=== PATIENT | female | born 1975 | race Two or more races ===

== ENCOUNTER → 2019-11-14 | Day surgery (SDC) | payer OTHER ==
[~2019-11-14] MED LIST: LIDOCAINE 2% INJ (20 MG/ML) 20 ML MDV ONE
--- NOTE | 2019-11-18 09:59 | WOMENS IMAGING REPORT ---
EXAM DESCRIPTION: U/S BREAST BX; RIGHT DIAGNOSTIC MAMMO W/CAD IMAGES COMPLETED DATE/TIME: 11/17/2019 4:12 pm; 11/14/2019 9:56 am REASON FOR STUDY: R92.8 OTH ABN AND INCONCLUSIVE FINDINGS ON DX IMAGING OF BREAST; S/P US RIGHT FRANK ST BX R92.8 R92.8 OTH ABN AND INCONCLUSIVE FINDINGS ON DX IMAGING OF DANILO COMPARISON: 10/30/2019. TECHNIQUE: The procedure was discussed with the patient and the patient agreed to proceed. The patient was scanned and the area of interest in the 10 -11 o'clock position of the right breast w as localized. This correlates with the area of concern on prior imaging studies. This area was targe isaiah for ultrasound-guided core biopsy. After sterile skin prep and 10 mL local lidocaine 1 % skin and deep tissue anesthesia, a 14 gauge coa xial core biopsy needle was used to obtain several cores of tissue from the lesion. Under ultrasound guidance, a Ribbon clip was placed in the areas sampled. There were no immediate post-procedure com plications. MAMMOGRAM: Post-procedure two view mammogram was acquired in the digital mammogram suite. The clip wa s in the expected location. No significant hematoma. Pathology yields a diagnosis of fibrocystic changes and adenosis. Negative for atypia malignancy. Pathology is concordant. LIMITATIONS: None. FINDINGS: Ultrasound guided breast biopsy as described above. POST PROCEDURE MAMMOGRAMS FOR MARKER PLACEMENT: Yes IMPRESSION: ULTRASOUND-GUIDED CORE BIOPSY OF THE RIGHT BREAST YIELDS A DIAGNOSIS OF FIBROCYSTIC HOLT GES AND ADENOSIS. NEGATIVE FOR ATYPIA AND MALIGNANCY. COMMENT: COMMUNICATION: The patient's provider has been notified of the findings. The provider will discuss the findings with the patient. Patient medication list reviewed: Yes- Quality ID# [id number]:Eligible professional attests to documenting i n the medical record they obtained, updated, or reviewed the patient's current medications. TECHNICAL DOCUMENTATION: JOB ID: [id number] 2010 [employer]- All Rights Reserved Reading location - IP/workstation name: [email or web address]
== END ==
LOC: WI 08:03
PROVIDERS: ATTEND Surgery
DX: R92.8 Other abnormal and inconclusive findings on diagnostic imaging of breast (principal); N60.21 Fibroadenosis of right breast
CPT/HCPCS: 88342 ×2; 88305 ×2; 19083; 77065; J3490